=== PATIENT | female | born 1975 | race Caucasian/White ===

== ENCOUNTER → 2018-01-30 | Outpatient (CLI) | payer OTHER | LOC: FIMAGING 08:11 | PROVIDERS: ATTEND Obstetrics & Gynecology | DX: O09.511 Supervision of elderly primigravida, first trimester (principal); O99.281 Endocrine, nutritional and metabolic diseases complicating pregnancy, first trimester; Z3A.12 12 weeks gestation of pregnancy ==

== ENCOUNTER → 2018-03-24 | Outpatient (CLI) | payer OTHER | LOC: FIMAGING 13:06 | PROVIDERS: ATTEND Obstetrics & Gynecology | DX: O09.512 Supervision of elderly primigravida, second trimester (principal); E03.9 Hypothyroidism, unspecified; Z3A.20 20 weeks gestation of pregnancy ==

== ENCOUNTER → 2018-04-22 | Outpatient (CLI) | payer OTHER | LOC: FIMAGING 13:05 | PROVIDERS: ATTEND Obstetrics & Gynecology | DX: O09.513 Supervision of elderly primigravida, third trimester (principal); O99.283 Endocrine, nutritional and metabolic diseases complicating pregnancy, third trimester; Z3A.24 24 weeks gestation of pregnancy ==

== ENCOUNTER → 2018-06-05 | Outpatient (CLI) | payer OTHER | LOC: FIMAGING 13:18 | PROVIDERS: ATTEND Obstetrics & Gynecology | DX: O09.513 Supervision of elderly primigravida, third trimester (principal); Z3A.30 30 weeks gestation of pregnancy ==

== ENCOUNTER 2018-07-08 15:55 | Inpatient (IN) | payer OTHER ==
[2018-07-08 18:23] LABS: PLATELET COUNT 333 10^3/uL (150-400)
[2018-07-08] MEDS ORDERED: BETAMETHASONE IM SYRINGE IM ONE (20:38)
[2018-07-08] MEDS ORDERED: CALCIUM GLUC 10% 1 GM/10 ML VIAL IVP PRN (20:57)
[2018-07-08] MEDS ORDERED: MAGNESIUM SULF 4 GM/WATER 100 ML IV ONE (20:57)
--- NOTE | 2018-07-08 21:41 | GHP ---
[f rep st] PREOP HISTORY AND PHYSICAL DATE OF ADMISSION: 07/08/2018 ADMITTING DIAGNOSIS: Intrauterine at 35-4/7 weeks gestation with preeclampsia with severe features for induction of labor. HISTORY OF PRESENT ILLNESS: The patient is a 43-year-old, 1, para 0, with a last menstrual p eriod of 11/01/2017, and an EDC of 08/08/2018. She presented for her normally scheduled nonstress te st at [facility] today and on the monitor the heart tones were 150s with a spontaneou s deceleration to the 120s and had variable decelerations. She had an ultrasound done. The baby was cephalic. FELIPE was 13 with a normal MVP, but the patient was sent to labor and delivery for extended monitoring to ensure wellbeing. While she was on labor and delivery, she was found to be hype rtensive. She has had blood pressures in the severe ranges. She is ranging 137/87 to 189/124. Angely rity of her blood pressures are in the 150s over high 90s or low 100s. She denies headache, scotomat a, right upper quadrant pain. Said has been feeling well prior to this hospitalization. She has goo d movement. Denies contractions. Currently, her baby is 140s and category 1. She is having s ome irritability but no contractions. She had a laboratory evaluation. Significant labs showed her white blood cell count was 11.9, hemoglobin 12.7, hematocrit 39.7, platelets 333. Chemistries: BUN is 14, creatinine 1.0, uric acid was 6.7, AST 22, ALT 23, LDH 413. Her urine P to C ratio was elevat ed at 0.382 showing significant proteinuria, so because of severe range blood pressure criteria and p roteinuria, I feel that patient meets the criteria for preeclampsia with severe features and at 35 an d 4/7 weeks' gestation meets the criteria for induction of labor, and so we will proceed with inducti on of labor. OBSTETRICAL HISTORY: The patient's past obstetrical history is none. This is her first . PUTTIER HISTORY: She had menses at age 13. They are irregular, approximately every 33 days, length of 3 days. Her last menstrual period was 11/01/2017. A test confirmed and early ultrasound co nfirmed her dates with an EDC of 08/08/2018. She a small fibroid seen on ultrasound and also an arcu ate-shaped uterus. This baby is confirmed cephalic. This is a Clomid . PAST MEDICAL HISTORY: She has gastroesophageal reflux disease, hypothyroidism, elevated BMI and pre- BMI of 36. SURGICAL HISTORY: She had an appendectomy in 2001 and was not ruptured. That is her only surgical h istory. PAST MEDICAL HISTORY: She did have a remote history of a kidney stone. ALLERGIES: She has no known drug allergies. MEDICATIONS: Include vitamins and DHEA, levothyroxine 125 mcg daily and vitamin D, and was on baby aspirin. SOCIAL HISTORY: She is . She lives with her . She is self-employed. 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 FAMILY HISTORY: Sister has asthma. No other significant history. LABS: She is A positive, antibody negative, RPR nonreactive, rubella immune, hepatitis negative, HIV negative. TSH has been monitored and normal in this . Pap was normal. Gonorrhea and chla mydia normal. was negative. AFP was negative. 1-hour GTT was elevated 131. 3-hour GTT w as normal. GBS is unknown. OBJECTIVE: VITAL SIGNS: The patient has elevated blood pressures 160s over 100s ranging 137/87 to 1 89/124. The majority of her blood pressures are in the 150s over high 90s to low 100s. GENERAL: Jed lim is a well-developed, obese, female in no acute distress. CHEST: Lungs are clear to auscultation bilaterally. HEART: Regular rate and rhythm with no murmur. ABDOMEN: Gravid, non tender. heart tones are 140s reactive, moderate variability, category 1, and she is not contra cting. Cervix is closed and long. Baby was confirmed cephalic on ultrasound. ASSESSMENT AND PLAN: 43-year-old, 1, para 0, at 35-4/7 weeks gestation with severe range blo od pressures and proteinuria. We will proceed with induction of labor. We will give her a dose of b etamethasone. She will have a dose 12 hours apart if she remains that long. She is startin g on magnesium. We will do a 4 g bolus 2 g an hour and p.o. Cytotec for cervical ripening, continuou s monitoring, and a consult with the nurse practitioner for questions of well-be ing. /[id number]/MODL
[2018-07-08] MEDS: Mag Sulf 500 ML IV SCH (21:51)
[2018-07-08] MEDS ORDERED: MISOPROSTOL 50 MCG CAP PO SCH (22:00)
[2018-07-08] MEDS ORDERED: hydrALAZINE 20 MG/ML VIAL IVP PRN (22:48)
[2018-07-08] MEDS ORDERED: TERBUTALINE SULFATE 1 MG/ML VIAL ONE (23:50)
[2018-07-08] MEDS ORDERED: LIDOCAINE 2% JELLY 5 ML TUBE ONE (23:59)
--- NOTE | 2018-07-09 00:12 | OBPROG ---
Labor Progress Note Assessment/Plan: Assessment: 43 y/o @ 35 5/7 weeks IOL secondary to pre eclampsia with severe features Plan: Pt was given 1 dose of IV Hydralazine 5 mg due to BP > 160/110's. I gave 1 dose of SQ terbutaline to reverse the contractions and give the baby a break. Without contractions, FHT"s now 140 mod variability and no decelerations. Will wait until Cytotec will be out of her system, full 4 hours, and then I will place Cervidil instead, because we can pull it if the baby reacts to contractions again. BP are slightly improved now 150's/90's, will hold further anti-hypertensives for now. 07/09/18 00:16 Subjective/Intrapartum Course: 07/09/18 00:09 I was called to assess patient due to decelerations in FHT"s. She is feeling painful contractions since receiving cytotec PO. She is also complaining of extreme discomfort due to the knapp catheter. Objective: 07/08/18 17:50 07/08/18 17:50 Patient ABO/Rh A POSITIVE 07/08/18 17:50 Uric Acid 6.7 mg/dL (2.5-6.8) 07/08/18 17:50 Total Bilirubin 0.4 mg/dL (0.1-1.4) 07/08/18 17:50 Conjugated Bilirubin 0.3 mg/dL (0.0-0.5) 07/08/18 17:50 Unconjugated Bilirubin 0.1 mg/dL (0.0-1.1) 07/08/18 17:50 AST 22 IU/L (14-46) 07/08/18 17:50 ALT 23 IU/L (9-52) 07/08/18 17:50 Lactate Dehydrogenase 413 IU/L (313-618) 07/08/18 17:50 Temp Pulse Resp BP Pulse Ox 170/107 H 07/08/18 23:01 - SVE Dilation (cm): 0 Effacement (%): Less than 50 Station: -2 Membranes: Intact - Contraction Pattern Assessment Current Contraction Pattern: Irregular (Q 3-5) - FHR Assessment Ulrich FHR (bpm): 140 FHR Pattern Variability: Moderate FHR Category: 2 (baby had spontaneous decelerations to 70's, variable decelerations) - AP Antepartum Course: 07/09/18 00:12 AMA elevated BMI Clomid Hypothyroidism Oxytocin Orders Assessment - Pre-Induction/Augmentation Assessment Gestational Age: 35 week(s) and 4 day(s) ICD10 Worksheet Patient Problems: Problems Problem Status Onset Pre-eclampsia Acute - ICD10 Problem Qualifiers (1) Pre-eclampsia Qualifiers: Trimester: third trimester Qualified Code(s): O14.93 - Unspecified pre- eclampsia, third trimester
[2018-07-09] MEDS ORDERED: LABETALOL HCL 5 MG/ML 20 ML MDV IVP ONE (01:02)
[2018-07-09] MEDS ORDERED: DINOPROSTONE 10 MG VAG SUPP VG ONE (03:08)
[2018-07-09] MEDS ORDERED: PHENYLEPHRINE HCL 100 MCG/ML SYR ONE ×2 (04:02→07:21)
[2018-07-09] MEDS ORDERED: fentaNYL 2MCG/ML/BUP 0.1% RTU 100 ML BAG EP ONE (04:02)
[2018-07-09] MEDS ORDERED: NALOXONE HCL 0.4 MG/ML INJ IVP PRN ×3 (05:32→08:50)
[2018-07-09] MEDS ORDERED: ONDANSETRON 4 MG/2 ML VIAL IVP PRN (05:32)
[2018-07-09] MEDS ORDERED: METOCLOPRAMIDE 10 MG/2 ML VIAL IVP PRN (05:32)
--- NOTE | 2018-07-09 05:37 | PREANESOB ---
Obstetric Pre-Anesthesia Info - General Info Proposed Procedure: labor epidural : 1 Para: 0 KAITLYN: 08/08/18 Gestational Age: 35 week(s) and 4 day(s) - Info Status: Premature Monitors: External FHR Pattern: Reassuring - Labor Status Cervical Dilation per last OB SVE: 0 Station per last OB SVE: -2 PIH: Severe Magnesium Sulfate in Use: Yes Indications for Labor Analgesia: BP Control, Pain Control Labor Epidural: Yes Anesthesia Allergies/Adverse Reactions: Allergy/AdvReac Type Severity Reaction Status Date / Time No Known Allergies Allergy Unverified 07/08/18 16:10 Home Medications: Medication Instructions Recorded Aspirin EC [Aspirin EC 81 mg (*)] 81 mg PO DAILY 07/08/18 Docosahexanoic Acid/Epa [Fish Oil 07/08/18 Concentrate Softgel] Ferrous Sulfate [Iron] 325 mg PO 07/08/18 Levothyroxine [Synthroid 125 mcg 125 mcg PO DAILY 07/08/18 (*)] Pnv No.121/Iron/Folic Acid 1 tab PO 07/08/18 [ Multivitamin Tablet] Visit Medications: Generic Name Dose Route Start Last Admin Trade Name Freq PRN Reason Stop Dose Admin Calcium Gluconate 1 gm 07/08/18 20:57 Calcium Gluconate IVP 01/04/19 20:56 PRN PRN Magnesium Toxicity Diphenhydramine HCl 25 - 50 mg 07/09/18 05:32 Benadryl Injection IVP 01/05/19 05:31 Q6HRS PRN Itching Ephedrine Sulfate 10 mg 07/09/18 05:32 Ephedrine Sulfate IV 01/05/19 05:31 .Q2M PRN Hypotension Hydralazine HCl 5 mg 07/08/18 22:48 07/08/18 23:01 Apresoline IVP 01/04/19 22:47 5 mg Q6HRS PRN Administration SBP Greater Than 160 Magnesium Sulfate 500 mls @ 50 mls/hr 07/08/18 21:00 07/08/18 21:51 Magnesium Sulfate 20 Gm/ 500 Ml (Premix) IV 01/04/19 20:59 500 mls CONT FAMILIA Administration Fentanyl/Bupivacaine HCl 100 mls @ 0 mls/hr 07/09/18 06:00 Fentanyl/Bupivacaine/Ns 2 Mcg/Ml 0.1% (Premix EP 07/19/18 05:59 CONT FAMILIA Protocol As Directed Lactated Ringer's 500 mls @ 0 mls/hr 07/09/18 06:00 Lr IV 01/05/19 05:59 CONT FAMILIA As Directed Metoclopramide HCl 20 mg 07/09/18 05:32 Reglan Injection IVP 01/05/19 05:31 Q6HRS PRN Nausea/Vomiting, Can't Take PO Misoprostol 50 mcg 07/08/18 22:00 07/08/18 23:05 Cytotec PO 01/04/19 21:59 50 mcg Q4 FAMILIA Administration Naloxone HCl 0.4 mg 07/09/18 05:32 Narcan IVP 01/05/19 05:31 PRN PRN Respiratory depression Ondansetron HCl 4 mg 07/09/18 05:32 Zofran IVP 07/10/18 05:31 Q4HRS PRN Nausea/Vomiting, Can't Take PO Phenylephrine HCl 100 mcg 07/09/18 05:32 Neosynephrine IVP 01/05/19 05:31 .Q2M PRN Hypotension Discontinued Medications Generic Name Dose Route Start Last Admin Trade Name Freq PRN Reason Stop Dose Admin Betamethasone Acet/Betameth SodPhos 12 mg 07/08/18 20:38 07/08/18 21:19 Celestone Im Syringe IM 07/08/18 20:39 12 mg ONCE ONE Administration Dinoprostone 10 mg 07/09/18 03:08 Cervidil VG 07/09/18 03:09 ONCE ONE Fentanyl/Bupivacaine HCl Confirm 07/09/18 04:02 Fentanyl/Bupivacaine/Ns 2 Mcg/Ml 0.1% (Premix Administered 07/09/18 04:03 Dose 100 ml EP .STK-MED ONE Magnesium Sulfate 100 mls @ 200 mls/hr 07/08/18 20:57 07/08/18 21:45 Magnesium Sulf 4 Gm (Premix) IV 07/08/18 21:26 100 mls ONCE ONE Administration Labetalol HCl 10 mg 07/09/18 01:02 07/09/18 01:14 Trandate Injection IVP 07/09/18 01:03 10 mg ONCE ONE Administration Lidocaine Confirm 07/08/18 23:59 Lidocaine 2% Jelly Administered 07/09/18 00:00 Dose 5 kinsey .ROUTE .STK-MED ONE Phenylephrine HCl Confirm 07/09/18 04:02 Neosynephrine Administered 07/09/18 04:03 Dose 1,000 mcg .ROUTE .STK-MED ONE Terbutaline Sulfate Confirm 07/08/18 23:50 Brethine Administered 07/08/18 23:51 Dose 1 mg .ROUTE .STK-MED ONE - Anesthesia History Response to Local Anesthetics: Not Applicable Anesthesia & Operative History: No Prior Problems - Vital Signs Latest Vital Signs (Nursing): Temp Pulse Resp BP Pulse Ox 99 168/104 H 07/09/18 01:14 07/09/18 01:14 Height/Weight (Nursing): Height 154.94 cm Weight 86.183 kg - Focused Exam Neck exam: FROM Mallampati Score: Class 2 Mouth exam: normal dental/mouth exam Pulmonary: no respiratory distress Cardiovascular: regular rate and rhythym Labs: 07/08/18 17:50 07/08/18 17:50 Patient ABO/Rh A POSITIVE 07/08/18 17:50 Uric Acid 6.7 mg/dL (2.5-6.8) 07/08/18 17:50 Total Bilirubin 0.4 mg/dL (0.1-1.4) 07/08/18 17:50 Conjugated Bilirubin 0.3 mg/dL (0.0-0.5) 07/08/18 17:50 Unconjugated Bilirubin 0.1 mg/dL (0.0-1.1) 07/08/18 17:50 AST 22 IU/L (14-46) 07/08/18 17:50 ALT 23 IU/L (9-52) 07/08/18 17:50 Lactate Dehydrogenase 413 IU/L (313-618) 07/08/18 17:50 - Plan Consent Signed and on Chart: Yes Patient/Guardian Understands and Agrees to Plan: Yes
--- NOTE | 2018-07-09 05:48 | OBPROG ---
Labor Progress Note Assessment/Plan: Assessment: 43 y/o @ 35 5/7 weeks IOL secondary to pre eclampsia with severe features Plan: I am very concerned about the well being of this baby. Her cervix is closed and she is very remote from delivery. Baby is having min variability and episodes of spontaneous decelerations without contractions. I feel we should proceed with c section delivery now and not continue the IOL due to intolerance. I have communicated this to the parents and they are in agreement. 07/09/18 00:16 07/09/18 05:49 Subjective/Intrapartum Course: 07/09/18 00:09 I was called to assess patient due to decelerations in FHT"s. She is feeling painful contractions since receiving cytotec PO. She is also complaining of extreme discomfort due to the knapp catheter. 07/09/18 05:42 Pt is comfortable with her epidural. She says she has been feeling contractions and bladder/pelvic pain. Objective: 07/08/18 17:50 07/08/18 17:50 Patient ABO/Rh A POSITIVE 07/08/18 17:50 Uric Acid 6.7 mg/dL (2.5-6.8) 07/08/18 17:50 Total Bilirubin 0.4 mg/dL (0.1-1.4) 07/08/18 17:50 Conjugated Bilirubin 0.3 mg/dL (0.0-0.5) 07/08/18 17:50 Unconjugated Bilirubin 0.1 mg/dL (0.0-1.1) 07/08/18 17:50 AST 22 IU/L (14-46) 07/08/18 17:50 ALT 23 IU/L (9-52) 07/08/18 17:50 Lactate Dehydrogenase 413 IU/L (313-618) 07/08/18 17:50 Temp Pulse Resp BP Pulse Ox 99 168/104 H 07/09/18 01:14 07/09/18 01:14 - SVE Dilation (cm): 0 Effacement (%): Less than 50 Station: -2 Membranes: Intact - Contraction Pattern Assessment Current Contraction Pattern: Irregular (Q 3-5), Other (Specify) (none) - FHR Assessment Ulrich FHR (bpm): 150 FHR Pattern Variability: Minimal FHR Category: 2 (episodes of variables and spontaneous decelerations) - AP Antepartum Course: 07/09/18 00:12 AMA elevated BMI Clomid Hypothyroidism Oxytocin Orders Assessment - Pre-Induction/Augmentation Assessment Gestational Age: 35 week(s) and 4 day(s) ICD10 Worksheet Patient Problems: Problems Problem Status Onset Pre-eclampsia Acute - ICD10 Problem Qualifiers (1) Pre-eclampsia Qualifiers: Trimester: third trimester Qualified Code(s): O14.93 - Unspecified pre- eclampsia, third trimester
[2018-07-09] MEDS ORDERED: LR 500 ML IV SCH (06:00)
[2018-07-09] MEDS ORDERED: fentaNYL 2MCG/ML/BUP 0.1% RTU 100 ML EP SCH (06:00)
[2018-07-09] MEDS ORDERED: ceFAZolin 2 GM/DEXTROSE 100 ML IV ONE (06:05)
[2018-07-09] MEDS ORDERED: LR 500 ML IV ONE (06:05)
[2018-07-09] MEDS ORDERED: LIDO/EPI 2% **for epidural** 20 ML SDV ONE (06:10)
[2018-07-09] MEDS ORDERED: morphINE PF 10 MG/10 ML INJ ONE (06:13)
[2018-07-09] MEDS ORDERED: OXYTOCIN 100 UNITS/10 ML VIAL ONE (07:25)
[2018-07-09] MEDS ORDERED: PROMETHAZINE HCL 25 MG/ML INJ IVP PRN (07:30)
[2018-07-09] MEDS ORDERED: BISACODYL 10 MG SUPP PR PRN (07:30)
[2018-07-09] MEDS ORDERED: SIMETHICONE 80 MG TAB CHEW PO PRN (07:30)
[2018-07-09] MEDS ORDERED: LACTULOSE 20 GM/30 ML UDCUP PO PRN (07:30)
[2018-07-09] MEDS ORDERED: HYDROCODONE/APAP 5/325 TAB PO PRN (07:30)
[2018-07-09] MEDS ORDERED: MAGNESIUM HYDROXIDE 30 ML UDCUP PO PRN (07:30)
[2018-07-09] MEDS ORDERED: POLYETHYLENE GLYCOL 3350 17 GM PKT PO PRN (07:30)
[2018-07-09] MEDS ORDERED: HYDROmorphONE/DILAUDID 6 MG/30 ML PCA IV PRN (07:32)
--- NOTE | 2018-07-09 07:38 | OBDEL ---
Info Type: Primary Presentation at Delivery: Vertex L&D Analgesia/Anesthesia Type: Epidural GBS+: No (unknown) Intrapartum Medications: Generic Name Dose Route Start Last Admin Trade Name Freq PRN Reason Stop Dose Admin Hydralazine HCl 5 mg 07/08/18 22:48 07/08/18 23:01 Apresoline IVP 01/04/19 22:47 5 mg Q6HRS PRN Administration SBP Greater Than 160 Magnesium Sulfate 500 mls @ 50 mls/hr 07/08/18 21:00 07/08/18 21:51 Magnesium Sulfate 20 Gm/ 500 Ml (Premix) IV 01/04/19 20:59 500 mls CONT FAMILIA Administration Misoprostol 50 mcg 07/08/18 22:00 07/08/18 23:05 Cytotec PO 01/04/19 21:59 50 mcg Q4 FAMILIA Administration Discontinued Medications Generic Name Dose Route Start Last Admin Trade Name Freq PRN Reason Stop Dose Admin Betamethasone Acet/Betameth SodPhos 12 mg 07/08/18 20:38 07/08/18 21:19 Celestone Im Syringe IM 07/08/18 20:39 12 mg ONCE ONE Administration Magnesium Sulfate 100 mls @ 200 mls/hr 07/08/18 20:57 07/08/18 21:45 Magnesium Sulf 4 Gm (Premix) IV 07/08/18 21:26 100 mls ONCE ONE Administration Labetalol HCl 10 mg 07/09/18 01:02 07/09/18 01:14 Trandate Injection IVP 07/09/18 01:03 10 mg ONCE ONE Administration - Infant Care Provider Neurosurgery Physician/STEMHOLE BORER AND TOPPER: Theresa Delta - [facility] Course Intrapartum: 07/09/18 00:09 I was called to assess patient due to decelerations in FHT"s. She is feeling painful contractions since receiving cytotec PO. She is also complaining of extreme discomfort due to the knapp catheter. 07/09/18 05:42 Pt is comfortable with her epidural. She says she has been feeling contractions and bladder/pelvic pain. Indications for Delivery: Preeclampsia Severe ( intolerance to labor) Vaginal Delivery - Labor and Delivery Cord Gases: Cord Gases Cord Blood PCO2 REJ 07/09/18 07:01 Cord Base Excess REJ 07/09/18 07:01 Cord ABG pH REJ 07/09/18 07:01 Cord VBG pH 7.25 (7.20-7.42) 07/09/18 07:01 Operative Report - Delivery Pre-op Diagnoses: IUP @ 35 5/7, pre eclampsia with severe features, intolerance to labor Post-op Diagnoses: same History of Prior Section: No Number of Prior Sections: 0 Nulliparous Prior to Delivery: Yes Indications for Current Section: Non-reas. Status, Other (Specify ) (severe pre eclampsia) Procedure: Unscheduled Surgeon: Ana Grant Online Marketing Manager: Evy Howard Anesthesiologist: Jere Acosta Complications: Nucal Cord, Other (Specify) (thick meconium) Findings: normal uterus, tubes and ovaries Specimen(s)/Path: Placenta IV Fluid (ml): 700 EBL: 700 Cord Gases: Cord Gases Cord Blood PCO2 REJ 07/09/18 07:01 Cord Base Excess REJ 07/09/18 07:01 Cord ABG pH REJ 07/09/18 07:01 Cord VBG pH 7.25 (7.20-7.42) 07/09/18 07:01 [place] Data KAITLYN: 08/08/18 Gestational Age: 35 week(s) and 5 day(s) Ulrich Delivery Date: 07/09/18 Delivery Time: 06:49 Sex of Infant: Male Weight (gm): 1808 g Score (1 Min): 7 Score (5 Min): 9 ICD10 Worksheet Patient Problems: Problems Problem Status Onset Delivery by emergency section Acute Pre-eclampsia Acute - ICD10 Problem Qualifiers (1) Pre-eclampsia Qualifiers: Trimester: third trimester Qualified Code(s): O14.93 - Unspecified pre- eclampsia, third trimester (2) Delivery by emergency section
[2018-07-09] MEDS: PHENYLEPHRINE HCL 100 MCG/ML SYR IVP PRN ×3 (07:40→08:18)
--- NOTE | 2018-07-09 08:08 | PREANESOB ---
Obstetric Pre-Anesthesia Info - General Info Proposed Procedure: : 1 Para: 0 KAITLYN: 08/08/18 Gestational Age: 35 week(s) and 4 day(s) - Info Status: Premature Monitors: External FHR Pattern: Non-reassuring - Labor Status Cervical Dilation per last OB SVE: 0 Station per last OB SVE: -2 PIH: Severe Magnesium Sulfate in Use: Yes Section History: Primary Indications for Current Section: Non-reas. Status Labor Epidural: Yes Anesthesia Allergies/Adverse Reactions: Allergy/AdvReac Type Severity Reaction Status Date / Time No Known Allergies Allergy Unverified 07/08/18 16:10 Home Medications: Medication Instructions Recorded Aspirin EC [Aspirin EC 81 mg (*)] 81 mg PO DAILY 07/08/18 Docosahexanoic Acid/Epa [Fish Oil 07/08/18 Concentrate Softgel] Ferrous Sulfate [Iron] 325 mg PO 07/08/18 Levothyroxine [Synthroid 125 mcg 125 mcg PO DAILY 07/08/18 (*)] Pnv No.121/Iron/Folic Acid 1 tab PO 07/08/18 [ Multivitamin Tablet] Visit Medications: Generic Name Dose Route Start Last Admin Trade Name Freq PRN Reason Stop Dose Admin Acetaminophen 650 mg 07/09/18 10:30 Tylenol PO 01/05/19 10:29 Q6H FAMILIA Hydrocodone Bitart/Acetaminophen 1 - 2 tab 07/09/18 07:30 [place] 5/325 PO 07/19/18 07:29 Q4HRS PRN Pain, Moderate Bisacodyl 10 mg 07/09/18 07:30 Dulcolax Rectal MS 01/05/19 07:29 DAILY PRN Constipation Protocol Calcium Gluconate 1 gm 07/08/18 20:57 Calcium Gluconate IVP 01/04/19 20:56 PRN PRN Magnesium Toxicity Diphenhydramine HCl 25 - 50 mg 07/09/18 05:32 Benadryl Injection IVP 01/05/19 05:31 Q6HRS PRN Itching Ephedrine Sulfate 10 mg 07/09/18 05:32 Ephedrine Sulfate IV 01/05/19 05:31 .Q2M PRN Hypotension Hydralazine HCl 5 mg 07/08/18 22:48 07/08/18 23:01 Apresoline IVP 01/04/19 22:47 5 mg Q6HRS PRN Administration SBP Greater Than 160 Hydromorphone HCl 0 mg 07/09/18 07:32 Dilaudid Absorption Plant Operator IV 07/19/18 07:31 PRN PRN Pain, Severe Unable to Take PO Protocol Magnesium Sulfate 500 mls @ 50 mls/hr 07/08/18 21:00 07/08/18 21:51 Magnesium Sulfate 20 Gm/ 500 Ml (Premix) IV 01/04/19 20:59 500 mls CONT FAMILIA Administration Fentanyl/Bupivacaine HCl 100 mls @ 0 mls/hr 07/09/18 06:00 Fentanyl/Bupivacaine/Ns 2 Mcg/Ml 0.1% (Premix EP 07/19/18 05:59 CONT FAMILIA Protocol As Directed Lactated Ringer's 500 mls @ 0 mls/hr 07/09/18 06:00 Lr IV 01/05/19 05:59 CONT FAMILIA As Directed Lactated Ringer's 1,000 mls @ 125 mls/hr 07/09/18 06:30 Lr IV 07/10/18 06:29 CONT FAMILIA Ibuprofen 600 mg 07/09/18 07:30 Motrin PO 01/05/19 07:29 Q6H FAMILIA Lactulose 20 gm 07/09/18 07:30 Cephulac PO 01/05/19 07:29 TID PRN Constipation Protocol Magnesium Hydroxide 30 ml 07/09/18 07:30 Milk Of Magnesia PO 01/05/19 07:29 DAILY PRN Constipation Protocol Metoclopramide HCl 20 mg 07/09/18 05:32 Reglan Injection IVP 01/05/19 05:31 Q6HRS PRN Nausea/Vomiting, Can't Take PO Misoprostol 50 mcg 07/08/18 22:00 07/08/18 23:05 Cytotec PO 01/04/19 21:59 50 mcg Q4 FAMILIA Administration Naloxone HCl 0.4 mg 07/09/18 05:32 Narcan IVP 01/05/19 05:31 PRN PRN Respiratory depression Naloxone HCl 0 mg 07/09/18 07:32 Narcan IVP 01/05/19 07:31 PRN PRN Respiratory depression Protocol Ondansetron HCl 4 mg 07/09/18 05:32 Zofran IVP 07/10/18 05:31 Q4HRS PRN Nausea/Vomiting, Can't Take PO Phenylephrine HCl 100 mcg 07/09/18 05:32 Neosynephrine IVP 01/05/19 05:31 .Q2M PRN Hypotension Polyethylene Glycol 17 gm 07/09/18 07:30 Miralax PO 01/05/19 07:29 DAILY PRN Constipation, patient prefers Protocol Promethazine HCl 25 mg 07/09/18 07:30 Phenergan IVP 01/05/19 07:29 Q6HRS PRN Nausea/Vomiting, Use 1st Senna/Docusate Sodium 1 - 2 tab 07/09/18 09:00 Senokot-S PO 01/05/19 08:59 BID FAMILIA Protocol Simethicone 80 mg 07/09/18 07:30 Mylicon PO 01/05/19 07:29 .TIDMEALS AND HS PRN Gas Discontinued Medications Generic Name Dose Route Start Last Admin Trade Name Freq PRN Reason Stop Dose Admin Betamethasone Acet/Betameth SodPhos 12 mg 07/08/18 20:38 07/08/18 21:19 Celestone Im Syringe IM 07/08/18 20:39 12 mg ONCE ONE Administration Dinoprostone 10 mg 07/09/18 03:08 Cervidil VG 07/09/18 03:09 ONCE ONE Fentanyl/Bupivacaine HCl Confirm 07/09/18 04:02 Fentanyl/Bupivacaine/Ns 2 Mcg/Ml 0.1% (Premix Administered 07/09/18 04:03 Dose 100 ml EP .STK-MED ONE Magnesium Sulfate 100 mls @ 200 mls/hr 07/08/18 20:57 07/08/18 21:45 Magnesium Sulf 4 Gm (Premix) IV 07/08/18 21:26 100 mls ONCE ONE Administration Cefazolin Sodium/Dextrose 100 mls @ 200 mls/hr 07/09/18 06:05 Ancef IV 07/09/18 06:34 ONCALL ONE Protocol Lactated Ringer's 500 mls @ 0 mls/hr 07/09/18 06:05 Lr IV 07/09/18 06:06 ONCE ONE As Directed Labetalol HCl 10 mg 07/09/18 01:02 07/09/18 01:14 Trandate Injection IVP 07/09/18 01:03 10 mg ONCE ONE Administration Lidocaine Confirm 07/08/18 23:59 Lidocaine 2% Jelly Administered 07/09/18 00:00 Dose 5 kinsey .ROUTE .STK-MED ONE Lidocaine/Epinephrine Confirm 07/09/18 06:10 Xylocaine 2%-Epi 1:200,000 Administered 07/09/18 06:11 Dose 40 ml .ROUTE .STK-MED ONE Morphine Sulfate Confirm 07/09/18 06:13 Morphine Pf 10 Mg/10 Ml Administered 07/09/18 06:14 Dose 10 mg .ROUTE .STK-MED ONE Oxytocin Confirm 07/09/18 07:25 Pitocin Administered 07/09/18 07:26 Dose 100 units .ROUTE .STK-MED ONE Phenylephrine HCl Confirm 07/09/18 04:02 Neosynephrine Administered 07/09/18 04:03 Dose 1,000 mcg .ROUTE .STK-MED ONE Phenylephrine HCl Confirm 07/09/18 07:21 Neosynephrine Administered 07/09/18 07:22 Dose 1,000 mcg .ROUTE .STK-MED ONE Terbutaline Sulfate Confirm 07/08/18 23:50 Brethine Administered 07/08/18 23:51 Dose 1 mg .ROUTE .STK-MED ONE - Vital Signs Latest Vital Signs (Nursing): Temp Pulse Resp BP Pulse Ox 36.6 C 94 18 143/92 H 97 07/09/18 06:14 07/09/18 06:14 07/09/18 06:14 07/09/18 06:14 07/09/18 06:14 Height/Weight (Nursing): Height 154.94 cm Weight 86.183 kg Labs: 07/08/18 17:50 07/08/18 17:50 Patient ABO/Rh A POSITIVE 07/08/18 17:50 Uric Acid 6.7 mg/dL (2.5-6.8) 07/08/18 17:50 Total Bilirubin 0.4 mg/dL (0.1-1.4) 07/08/18 17:50 Conjugated Bilirubin 0.3 mg/dL (0.0-0.5) 07/08/18 17:50 Unconjugated Bilirubin 0.1 mg/dL (0.0-1.1) 07/08/18 17:50 AST 22 IU/L (14-46) 07/08/18 17:50 ALT 23 IU/L (9-52) 07/08/18 17:50 Lactate Dehydrogenase 413 IU/L (313-618) 07/08/18 17:50
--- NOTE | 2018-07-09 08:20 | GOP ---
[f rep st] OPERATIVE REPORT DATE OF OPERATION: 07/09/2018 SURGEON: Ana Grant MD DECONTAMINATION WORKER: Evy Howard, certified nurse, 1st assistant surveyor. ANESTHESIA: Epidural, Dr. Acosta. PREOPERATIVE DIAGNOSIS: Intrauterine at 35 and 4/7 weeks' gestation with preeclampsia with severe features and intolerance to labor. POSTOPERATIVE DIAGNOSIS: Intrauterine at 35 and 4/7 weeks' gestation with preeclampsia wit h severe features and intolerance to labor. PROCEDURE PERFORMED: Primary low transverse section. FINDINGS: Viable male, Apgars of 7 and 9, weight of 1808 g, and cord pH venous of 7.25. ESTIMATED BLOOD LOSS: For procedure was 700 cc. INDICATIONS: Rosita is a 43-year-old, 1, para 0, who presented at 35 and 4/7 weeks gestatio n for her scheduled nonstress test at [facility]. During the nonstress test, the fetus had a spontaneous deceleration from the 150s to the 120s for 2 minutes and was sent to Labor and Deliver y for extended monitoring. During the extended monitoring, Mom was found to have blood pressures in the severe range 130s to 180s/90s to 124, and her PI labs were significant for elevated creatinine a nd uric acid and she had significant proteinuria with a P to C ratio of 0.328. Diagnosis of preeclam psia with severe features was made and we gave the baby a dose of betamethasone, started magnesium hwang lfate, and started induction of labor. The patient was given 1 dose of p.o. Cytotec and the baby had spontaneous decelerations, late decelerations, decreased variability. She was given one dose of sub cu terbutaline which reversed her contractions and improved the monitoring temporarily, but bab y continued to have episodes of deceleration and decreased variability. After several hours of monit oring with oxygen, position changes, and resuscitative efforts I rechecked her cervix. She was closed and long and had a long discussion with the patient and her of intolerance to l abor remote from delivery and I recommended section. The patient was in agreement. She was consented for the procedure. She understood the risks and benefits, the risks including bleeding, i nfection, damage to internal organs, uterus, tubes, ovaries, bowel, bladder, nerves, blood vessels, u reters, risk of injury, risk of hemorrhage requiring blood transfusion, hysterectomy, or . She understood these risks and benefits and agreed to proceed. DESCRIPTION OF PROCEDURE: Patient was taken to the operating room, where her epidural was dosed and found to be adequate. She was prepped and draped in the dorsal supine position with a leftward tilt, a Howard catheter had previously been placed in her bladder. After adequate anesthesia was assured a nd a WHO time-out was performed, a transverse skin incision was made with a scalpel. The incision wa s carried down to the underlying layer of fascia with the Bovie. The fascia was incised midline. Fa scial incision was extended laterally with Shea scissors. Superior aspect of the fascial incision wa s grasped with Radha clamps, elevated, and the rectus muscles were dissected off sharply. Inferior aspect of the fascial incision was grasped with Radha clamps, elevated, and rectus muscles were diss ected off sharply. Rectus muscles were in the midline. Peritoneum was entered bluntly. P eritoneal incision was extended superiorly and inferiorly with good visualization of the bladder. Bl adder blade was inserted. The vesicouterine peritoneum was grasped with the pickups and entered harvinder ply with Metzenbaum scissors. The incision was extended laterally, and bladder flap was created digi tally. The bladder blade was reinserted. The uterus was incised with a knife. There was thick meco nium upon entry into the uterine cavity. The incision was extended laterally with the bandage scisso rs. The had a body cord and was delivered atraumatically. The cord was clamped and cut. The infant was immediately handed over to the nurse practitioner. Cord blood gas as well as co rd bloods were sent. The placenta was removed manually. The uterus was exteriorized, cleared of all clots and debris. The uterine incision was repaired with 0 Vicryl in a running locked fashion. Sec ond imbricating layer of suture was performed with 0 Vicryl and good hemostasis was assured. The [place] was returned to the abdomen. Gutters were cleared of all clots and debris. Inspection of the ut erine incision again assured hemostasis. The rectus muscles were approximated with 2-0 Vicryl in inv erted mattress fashion. The fascia was closed with #1 Vicryl in a running fashion. Subcuticular lay er was closed with 2-0 Vicryl and skin was closed with 4-0 Monocryl. The patient tolerated the proce dure well. Sponge, lap, needle, and instrument counts were correct x2. The patient went to the [facility] very room in good condition. FLUID REPLACEMENT: 700 cc. URINE OUTPUT: 150 cc. /[id number]/MODL
--- NOTE | 2018-07-09 08:50 | POSTANESTH ---
Post Anesthetic Evaluation Cardiovascular Status: Normal, Stable Respiratory Status: Normal, Stable Level of Consciousness/Mental Status: Can Participate in Eval Pain Control: Adequate, Prn Tx Ordered Nausea/Vomiting Control: Adequate, Prn Tx Ordered Complications Possibly Related to Anesthesia: Other, See Comments (Pt had unintended dural puncture with 1st epidural attempt. 2nd attempt succesful and epidural then consenquently used for with good analgesia. Prophylactic blood patch performed via epidural catheter in PACU with no complications.)
[2018-07-09] MEDS ORDERED: LABETALOL HCL 5 MG/ML 20 ML MDV IVP PRN (08:52)
[2018-07-09] MEDS ORDERED: PHENYLEPHRINE HCL 100 MCG/ML SYR IVP PRN (08:52)
[2018-07-09] MEDS ORDERED: fentaNYL 100 MCG/2 ML INJ IVP PRN (08:52)
[2018-07-09] MEDS: IBUPROFEN 600 MG TAB PO SCH ×3 (09:12→20:04)
[2018-07-09] MEDS: LR 1,000 ML IV SCH ×2 (09:13→22:31)
[2018-07-09] MEDS: Mag Sulf 500 ML IV SCH ×2 (10:29→20:20)
[2018-07-09 12:21] LABS: PLATELET COUNT 318 10^3/uL (150-400)
[2018-07-09] MEDS: ACETAMINOPHEN 325 MG TAB PO SCH ×2 (13:30→17:09)
[2018-07-09] MEDS: SENNOSIDES/DOCUSATE SODIUM TAB PO SCH ×2 (13:31→20:21)
[2018-07-10] MEDS: ACETAMINOPHEN 325 MG TAB PO SCH ×5 (05:43→21:26)
[2018-07-10] MEDS: IBUPROFEN 600 MG TAB PO SCH ×4 (05:43→21:07)
[2018-07-10] MEDS: Mag Sulf 500 ML IV SCH (06:41)
[2018-07-10] MEDS: SENNOSIDES/DOCUSATE SODIUM TAB PO SCH ×2 (09:09→21:29)
--- NOTE | 2018-07-10 16:52 | PDPAINCON ---
Pain Management Consultation Patient referred by Dr.: Rose - Subjective Pain is: no pain at all - Objective Technique: spinal opioid (epidural duramorph s/p ) Continuous infusion: morphine - Assessment/Plan Assessment/Plan: pain well-controlled, continue current mgmt (Pt doing well s/p with epidural. No headache, no back pain, regained sensation and strength in lower extremities.)
[2018-07-10] MEDS ORDERED: oxyCODONE IR 5 MG TAB PO PRN (18:03)
--- NOTE | 2018-07-10 23:36 | OBPP ---
Progress Note Assessment/Plan: Assessment: POD 1 1/2 s/p primary c/s for intolerance to labor preeclampsia with severe features with HTN, nl labs - s/p 24 hours magnesium sulfate post anemia Plan: Routine care, iron daily, b/p fine 07/10/18 23:29 Subjective/ Course: 07/10/18 23:32 Pt doing well. States not having any pain while still and ibu/tyl managing pain. urinating fine. bld is light. baby is working on latching but fatigues easily. pumping also. feels better off mag, but also felt on morphine was so groggy. Objective: 07/09/18 12:00 07/09/18 12:00 Patient ABO/Rh A POSITIVE 07/08/18 17:50 Uric Acid 6.7 mg/dL (2.5-6.8) 07/09/18 12:00 Total Bilirubin 0.3 mg/dL (0.1-1.4) 07/09/18 12:00 Conjugated Bilirubin 0.2 mg/dL (0.0-0.5) 07/09/18 12:00 Unconjugated Bilirubin 0.1 mg/dL (0.0-1.1) 07/09/18 12:00 AST 21 IU/L (14-46) 07/09/18 12:00 ALT 18 IU/L (9-52) 07/09/18 12:00 Lactate Dehydrogenase 504 IU/L (313-618) 07/09/18 12:00 Group B Strep DNA POSITIVE (NEGATIVE) H 07/08/18 21:00 Temp Pulse Resp BP Pulse Ox 37.2 C 80 40 H 116/78 97 07/10/18 21:00 07/10/18 21:00 07/10/18 21:00 07/10/18 21:00 07/10/18 21:00 Uterine Position/Fundal Height: At Umbilicus Uterine Tone: Firm Physical Exam - Physical Exam Abdomen: non-tender (approp post op tenderness), soft, incision (CDI, ) Extremities: non-tender, pedal edema (mild) Skin: normal color, warm/dry Neuro/Psych: alert, normal mood/affect
[2018-07-11] MEDS: ACETAMINOPHEN 325 MG TAB PO SCH ×4 (03:37→21:00)
[2018-07-11] MEDS: IBUPROFEN 600 MG TAB PO SCH ×4 (03:37→21:00)
--- NOTE | 2018-07-11 08:58 | OBPP ---
Progress Note Assessment/Plan: Assessment: 43 POD#2 s/p primary LTCS 2/2 intol of labor in setting of IOL for preeclampsia with severe features. BPs stable. Doing well post op. Plan: Continue routine post op cares. Charo Garrison MD, FACOG [facility] [place] 07/11/18 08:55 Subjective/ Course: 07/10/18 23:32 Pt doing well. States not having any pain while still and ibu/tyl managing pain. urinating fine. bld is light. baby is working on latching but fatigues easily. pumping also. feels better off mag, but also felt on morphine was so groggy. 07/11/18 08:57 Pt doing well today. Eating breakfast. No N/V. No longer groggy. Ambulating, voiding and has had a BM. Pumping. Pain well controlled with po meds. Mod lochia. 07/11/18 09:02 Objective: 07/09/18 12:00 07/09/18 12:00 Patient ABO/Rh A POSITIVE 07/08/18 17:50 Uric Acid 6.7 mg/dL (2.5-6.8) 07/09/18 12:00 Total Bilirubin 0.3 mg/dL (0.1-1.4) 07/09/18 12:00 Conjugated Bilirubin 0.2 mg/dL (0.0-0.5) 07/09/18 12:00 Unconjugated Bilirubin 0.1 mg/dL (0.0-1.1) 07/09/18 12:00 AST 21 IU/L (14-46) 07/09/18 12:00 ALT 18 IU/L (9-52) 07/09/18 12:00 Lactate Dehydrogenase 504 IU/L (313-618) 07/09/18 12:00 Group B Strep DNA POSITIVE (NEGATIVE) H 07/08/18 21:00 Temp Pulse Resp BP Pulse Ox 36.8 C 86 16 126/74 H 97 07/11/18 08:00 07/11/18 08:00 07/11/18 08:00 07/11/18 08:00 07/11/18 08:00 BP max for past 24 hours is the current one. gen - pleasant, NAD abd - soft, obese, fundus firm at u-2 inc - d/i with steristrips, with some dried sanguinous drng ext - calves NT, 1+ edema Uterine Position/Fundal Height: Umbilicus -2 Uterine Tone: Firm
[2018-07-11] MEDS: SENNOSIDES/DOCUSATE SODIUM TAB PO SCH (09:00)
[2018-07-11] MEDS: FERRO-SEQUELS 65 MG TAB.ER PO SCH (09:00)
[2018-07-11] MEDS: LEVOTHYROXINE 125 MCG TAB PO SCH (09:01)
[2018-07-12] MEDS: SENNOSIDES/DOCUSATE SODIUM TAB PO SCH ×2 (00:38→10:17)
[2018-07-12] MEDS: IBUPROFEN 600 MG TAB PO SCH ×3 (03:11→18:45)
[2018-07-12] MEDS: ACETAMINOPHEN 325 MG TAB PO SCH ×3 (03:11→18:45)
[2018-07-12] MEDS: FERRO-SEQUELS 65 MG TAB.ER PO SCH (09:39)
[2018-07-12] MEDS: LEVOTHYROXINE 125 MCG TAB PO SCH (09:39)
--- NOTE | 2018-07-12 14:43 | OBPP ---
Progress Note Assessment/Plan: Assessment: 43 y/o POD #3 s/p LTCS @ 35 weeks secondary to pre eclampsia with severe features and intolerance to labor Plan: Will start Labelelol 200 mg BID now and observe BP. No further signs of worsening pre eclampsia, now 24 hours s/p MgSo4. Continue pumping., baby is doing well and stable in NICU. 07/09/18 00:16 07/09/18 05:49 07/12/18 14:43 Subjective/ Course: 07/10/18 23:32 Pt doing well. States not having any pain while still and ibu/tyl managing pain. urinating fine. bld is light. baby is working on latching but fatigues easily. pumping also. feels better off mag, but also felt on morphine was so groggy. 07/11/18 08:57 Pt doing well today. Eating breakfast. No N/V. No longer groggy. Ambulating, voiding and has had a BM. Pumping. Pain well controlled with po meds. Mod lochia. 07/11/18 09:02 07/12/18 14:32 Pt is feeling overall well. She has episodes of dizziness, but denies LEWIS, scotomata. Her incisional pain is well controlled with Ibuprofen and Tylenol, she hasn't needed Oxy. She is ambulating and voiding and has had a BM. She is working on pumping and getting some colustrum. We discussed adding Labatelol 200 mg BID today and will keep inpatient today. She is in agreement. Objective: 07/09/18 12:00 07/09/18 12:00 Patient ABO/Rh A POSITIVE 07/08/18 17:50 Uric Acid 6.7 mg/dL (2.5-6.8) 07/09/18 12:00 Total Bilirubin 0.3 mg/dL (0.1-1.4) 07/09/18 12:00 Conjugated Bilirubin 0.2 mg/dL (0.0-0.5) 07/09/18 12:00 Unconjugated Bilirubin 0.1 mg/dL (0.0-1.1) 07/09/18 12:00 AST 21 IU/L (14-46) 07/09/18 12:00 ALT 18 IU/L (9-52) 07/09/18 12:00 Lactate Dehydrogenase 504 IU/L (313-618) 07/09/18 12:00 Group B Strep DNA POSITIVE (NEGATIVE) H 07/08/18 21:00 Temp Pulse Resp BP Pulse Ox 36.2 C 90 16 135/93 H 94 07/12/18 10:55 07/12/18 10:55 07/12/18 10:55 07/12/18 10:55 07/12/18 10:55 Uterine Position/Fundal Height: Umbilicus -2 Uterine Tone: Firm Physical Exam - Physical Exam General Appearance: alert, no apparent distress Neck: non-tender, full range of motion, supple Respiratory: chest non-tender, lungs clear, normal breath sounds Cardiac/Chest: regular rate, rhythm Abdomen: normal bowel sounds, incision (c/d/i) Extremities: swelling (no), Eber's sign (neg)
[2018-07-12] MEDS: LABETALOL HCL 200 MG TAB PO SCH (20:56)
[2018-07-13] MEDS: ACETAMINOPHEN 325 MG TAB PO SCH ×5 (00:18→20:39)
[2018-07-13] MEDS: IBUPROFEN 600 MG TAB PO SCH ×5 (00:19→20:38)
[2018-07-13] MEDS: SENNOSIDES/DOCUSATE SODIUM TAB PO SCH ×2 (00:20→13:31)
[2018-07-13] MEDS: FERRO-SEQUELS 65 MG TAB.ER PO SCH (09:01)
[2018-07-13] MEDS: LABETALOL HCL 200 MG TAB PO SCH (09:02)
[2018-07-13] MEDS: LEVOTHYROXINE 125 MCG TAB PO SCH (09:02)
--- NOTE | 2018-07-13 13:23 | OBPP ---
Progress Note Assessment/Plan: Assessment: 43 POD#2 s/p primary LTCS 2/2 intol of labor in setting of IOL for preeclampsia with severe features. BPs stable. Doing well post op. Plan: Continue routine post op cares. Charo Garrison MD, FACOG [facility] A/P: 43 POD#4 s/p primary LTCS 2/2 intol labor, with preeclampsia with severe features. BPs were normal initially but yesterday started climbing and Labetolol started last night - has decreased BPs some, but not sufficiently. Will add 100mg now, and change Rx to 300mg bid. Will dc to home/boarding. FU in office in 2 d for BP check. Post op instructions reviewed. See dc summary. Charo Garrison MD, FACOG 07/13/18 14:41 Subjective/ Course: 07/10/18 23:32 Pt doing well. States not having any pain while still and ibu/tyl managing pain. urinating fine. bld is light. baby is working on latching but fatigues easily. pumping also. feels better off mag, but also felt on morphine was so groggy. 07/11/18 08:57 Pt doing well today. Eating breakfast. No N/V. No longer groggy. Ambulating, voiding and has had a BM. Pumping. Pain well controlled with po meds. Mod lochia. 07/11/18 09:02 07/12/18 14:32 Pt is feeling overall well. She has episodes of dizziness, but denies LEWIS, scotomata. Her incisional pain is well controlled with Ibuprofen and Tylenol, she hasn't needed Oxy. She is ambulating and voiding and has had a BM. She is working on pumping and getting some colustrum. We discussed adding Labatelol 200 mg BID today and will keep inpatient today. She is in agreement. 07/13/18 14:45 Pt doing well. Has only been taking ibu and acetominophen - no oxy. Ambulating , voiding, nitesh reg diet, + BM. Feels fine on the Labetolol 200mg bid - has had 2 doses. No LEWIS, vis changes, epigastric pain. Min lochia. Objective: 07/09/18 12:00 07/09/18 12:00 Patient ABO/Rh A POSITIVE 07/08/18 17:50 Uric Acid 6.7 mg/dL (2.5-6.8) 07/09/18 12:00 Total Bilirubin 0.3 mg/dL (0.1-1.4) 07/09/18 12:00 Conjugated Bilirubin 0.2 mg/dL (0.0-0.5) 07/09/18 12:00 Unconjugated Bilirubin 0.1 mg/dL (0.0-1.1) 07/09/18 12:00 AST 21 IU/L (14-46) 07/09/18 12:00 ALT 18 IU/L (9-52) 07/09/18 12:00 Lactate Dehydrogenase 504 IU/L (313-618) 07/09/18 12:00 Group B Strep DNA POSITIVE (NEGATIVE) H 07/08/18 21:00 Temp Pulse Resp BP Pulse Ox 37.1 C 80 16 144/97 H 95 07/13/18 08:56 07/13/18 12:00 07/13/18 12:00 07/13/18 12:00 07/13/18 08:56 gen - pleasant, NAD CV - RRR chest - CTAB abd - soft, + BS, fundus firm at u-2 Uterine Position/Fundal Height: Umbilicus -2 Uterine Tone: Firm
[2018-07-13] MEDS ORDERED: LABETALOL HCL 100 MG TAB PO ONE (14:39)
[2018-07-13] MEDS ORDERED: LABETALOL HCL 200 MG TAB PO SCH (14:41)
[2018-07-13 21:40] VITALS: BP 153/102
== END 2018-07-13 21:15 | disposition home or self-care (01) | DRG 788 ==
LOC: FLD 15:55 → OBSVTOIN 07-09 10:30 → FOB 07-10 12:50
PROVIDERS: ADMIT Obstetrics & Gynecology; ATTEND Obstetrics & Gynecology
DX: O14.14 Severe pre-eclampsia complicating childbirth (principal); O76 Abnormality in fetal heart rate and rhythm complicating labor and delivery; O99.284 Endocrine, nutritional and metabolic diseases complicating childbirth; E03.9 Hypothyroidism, unspecified; O99.62 Diseases of the digestive system complicating childbirth; K21.9 Gastro-esophageal reflux disease without esophagitis; Z87.442 Personal history of urinary calculi; Z3A.35 35 weeks gestation of pregnancy; Z37.0 Single live birth
CPT/HCPCS: J0360; J0610; J0690; J0702; J1170; J2274; J2370; J2405; J2590; J3105; J3475